=== PATIENT | male | born 1965 | race Two or more races ===

== ENCOUNTER 2016-06-28 07:29 | Day surgery (SDC) | payer MEDICARE ==
[~2016-06-28] VITALS: Ht 175.3 cm; Wt 122.0 kg
[~2016-06-28 07:29] MED LIST: OXYC-229 PO
[2016-06-28 08:01] VITALS: BP 144/94
[2016-06-28] MEDS ORDERED: FENTANYL PF 250 MCG/5ML ONE (08:27)
[2016-06-28] MEDS ORDERED: MIDAZOLAM 1 MG/ML, 2ML ONE (08:27)
[2016-06-28] MEDS ORDERED: KETAMINE 10 MG/ML, 20ML ONE (08:27)
[2016-06-28] MEDS ORDERED: LACTATED RINGERS 1,000 ML IV SCH (09:00)
[2016-06-28] MEDS ORDERED: PROPOFOL 10 MG/ML, 20ML ONE (09:12)
[2016-06-28] MEDS ORDERED: CEFAZOLIN 1,000 MG ONE (09:12)
[2016-06-28] MEDS ORDERED: ONDANSETRON 2MG/ML, 2ML ONE (09:12)
[2016-06-28] MEDS ORDERED: DEXAMETHASONE 4 MG/ML, 1ML ONE (09:12)
[2016-06-28] MEDS ORDERED: CLINDAMYCIN 150 MG/ML, 6ML ONE (09:28)
[2016-06-28] MEDS ORDERED: BUPIVACAINE/PF-EPI 0.5% 1:200K INFIL ONE (09:50)
[2016-06-28] MEDS ORDERED: PROMETHAZINE 25 MG/ML, 1ML IV PRN (10:00)
[2016-06-28] MEDS ORDERED: MEPERIDINE/PF 25MG/0.5ML IVPush PRN (10:00)
[2016-06-28] MEDS ORDERED: OXYcodone 5 MG/5 ML ORAL.SOL UDC PO PRN (10:00)
[2016-06-28] MEDS ORDERED: ACETAMINOPHEN 325 MG TABLET PO PRN (10:00)
[2016-06-28] MEDS ORDERED: FENTANYL PF 100 MCG/2ML ONE (11:14)
[2016-06-28] MEDS ORDERED: ACETAMINOPHEN 650 MG/20.3 ML UDC ONE (11:14)
[2016-06-28] MEDS ORDERED: ACETAMINOPHEN 325 MG TABLET ONE (11:15)
[2016-06-28] MEDS ORDERED: HYDROmorphone 2 MG/ML, 1ML ONE (11:15)
[2016-06-28] MEDS ORDERED: OXYcodone 5 MG/5 ML ORAL.SOL UDC ONE (11:15)
[2016-06-28] MEDS: HYDROmorphone 1 MG/ML, 1ML IV PRN ×4 (11:17→12:09)
[2016-06-28] MEDS: FENTANYL PF 100 MCG/2ML IV PRN ×2 (11:21→11:40)
[2016-06-28] MEDS ORDERED: hydrALAzine 20 MG/ML, 1ML IV PRN (11:30)
[2016-06-28] MEDS: LABETALOL 5MG/ML, 20ML IV PRN ×2 (11:33→12:15)
== END 2016-06-28 15:05 | disposition home or self-care (01) ==
LOC: OUT 07:29
PROVIDERS: ATTEND Orthopaedic Surgery
DX: S46.211A Strain of muscle, fascia and tendon of other parts of biceps, right arm, initial encounter (principal); E66.9 Obesity, unspecified; Z68.39 Body mass index [BMI] 39.0-39.9, adult; X58.XXXA Exposure to other specified factors, initial encounter; Y93.89 Activity, other specified; Y92.9 Unspecified place or not applicable; Y99.9 Unspecified external cause status
CPT/HCPCS: 24341; 73080; 76000; C1713; J0690; J1100; J1170; J2250; J2405; J2704; J3010; J7120; 76001